=== PATIENT | female | born 1950 | race Caucasian/White ===

== ENCOUNTER 2025-08-08 06:20 | Day surgery (SDC) | payer MEDICARE, OTHER, SELFPAY | END 2025-08-08 11:17 | disposition home or self-care (01) | LOC: GI 06:20 | PROVIDERS: ATTENDING PHYSICIAN Internal Medicine Gastroenterology; FAMILY PHYSICIAN Family Medicine | DX: Z12.11 Encounter for screening for malignant neoplasm of colon (principal); R19.5 Other fecal abnormalities; K64.8 Other hemorrhoids; Q43.8 Other specified congenital malformations of intestine; D12.4 Benign neoplasm of descending colon; K63.5 Polyp of colon | CPT/HCPCS: 45385; 88305 ==